=== PATIENT | female | born 1965 | race Two or more races ===

== ENCOUNTER 2017-09-18 10:47 | Emergency (ER) | payer BC ==
[~2017-09-18] VITALS: Ht 167.6 cm; Wt 91.0 kg
[2017-09-18] MEDS ORDERED: METHYLPREDNISOLONE SOD SUCC 125 MG/2 ML VIAL IV ONE (11:15)
[2017-09-18] MEDS ORDERED: FAMOTIDINE 20MG/2ML VIAL IV ONE (11:15)
[2017-09-18 14:37] VITALS: BP 123/69
== END 2017-09-18 15:09 | disposition home or self-care (01) ==
LOC: ER 11:01
DX: T78.40XA Allergy, unspecified, initial encounter (principal); L50.0 Allergic urticaria; J45.909 Unspecified asthma, uncomplicated; X58.XXXA Exposure to other specified factors, initial encounter
CPT/HCPCS: 96374; 96375; 99284; J2930; J3490; Z7610